=== PATIENT | male | born 1980 | race Two or more races ===

== ENCOUNTER 2016-10-13 00:16 | Emergency (ER) | payer BC ==
[2016-10-13 02:57] LABS: CHLORIDE,CL 101 mmol/L (98-107); SODIUM,NA 138 mmol/L (136-145)
[2016-10-13] MEDS ORDERED: Amoxicillin 875 MG Tab PO ONE (03:15)
[2016-10-13 03:44] VITALS: BP 138/80
--- NOTE | 2016-10-16 08:12 | ER ---
Date of Service: 10/13/2016 SUBJECTIVE: Tom presents to the emergency room with his . The patient states that he has been experiencing increased depression and increased alcohol intake. The patient had made several comments that he "did not want to live anymore on social media and also to his ." They have been in contact with Murieljeffery Michele today who told him to come in to the emergency room to be medically cleared for possible admission to [facility]. The patient states that he is not currently acutely suicidal or homicidal and does not have a plan to harm himself. He is requesting alcohol treatment, however. PAST MEDICAL HISTORY: Alcoholism. MEDICATIONS: None. ALLERGIES: To Humira. REVIEW OF SYSTEMS: General: Denies any fever or chills. HEENT: No sore throat, rhinorrhea, or congestion. Respiratory: No shortness of breath. Cardiac: Denies any substernal chest pain. Gastrointestinal: No nausea, vomiting, or diarrhea. No melena, hematochezia, or hematemesis. Neurologic: No fainting, blackouts, or lightheadedness. PHYSICAL EXAMINATION: General: This is a 35-year-old male patient, who is in no acute distress. Vital Signs: Blood pressure is 138/80, pulse rate is 91, temperature is 36.0, respiratory rate is 20, O2 saturations 96%. Skin: Warm, pink, and dry. HEENT: Head is normocephalic, atraumatic. Eyes, PERRLA. Extraocular movements are intact. Ears, TMs are clear. Mouth, oral mucosa is moist. Lungs: Clear to auscultation. Heart: Regular rate and rhythm. Abdomen: Soft, nontender. There is no hepatosplenomegaly or masses noted. Extremities: Without edema. Neurologic: He is alert and oriented. Answers all questions appropriately. His speech is fluent. His gait is within normal limits. LABORATORY DATA: WBCs are 14.7, hemoglobin is 15.9, platelets are 345. Coags; PT is 10.8, INR is 1.0. Sodium is 138, potassium is 3.7, chloride is 101, bicarb is 25, BUN is 17, creatinine is 0.8, GFR is greater than 60, glucose is 95, calcium is 8.8, corrected calcium is 8.32, total bilirubin is 0.8, AST is 25, ALT is 45, alkaline phosphatase is 65, total protein is 7.9, albumin is 4.6. TSH is 3.017. Urinalysis reveals specific gravity 1.030, negative for nitrites and leukocytes, ketones, and glucose. Urine toxicology was negative. Blood alcohol was negative. Acetaminophen level was negative. ASSESSMENT: 1. Depression. 2. Alcoholism. PLAN: The patient will be discharged. I did speak with [facility] Needs Assessment. The patient did as well. They did set up a screening later at [facility] in [place]. His laboratory data was given to him to bring to that facility. All questions were answered. MWK: 10/15/2016 05:59:18 MODL: 10/15/2016 11:22:59 /[id number]
== END 2016-10-13 03:58 | disposition home or self-care (01) ==
LOC: VM.ED 00:16
DX: F32.9 Major depressive disorder, single episode, unspecified (principal); F10.20 Alcohol dependence, uncomplicated
CPT/HCPCS: 36415; 80053; 80305; 81001; 84443; 85025; 85610; 87880; 99284; A9270; G0480

== ENCOUNTER 2021-01-11 07:55 | Emergency (ER) | payer BC, OTHER ==
[2021-01-11 08:06] VITALS: BP 160/94; PULSE 131
[2021-01-11] MEDS ORDERED: Sodium Chloride 0.9% 10 ML Syringe FLUSH PRN (08:19)
--- NOTE | 2021-01-11 08:22 | EDM.PDOC ---
ED HPI GENERAL MEDICAL PROBLEM - General Chief Complaint: General Stated Complaint: FEELING DIZZY AND CONFUSED Time Seen by Provider: 01/11/21 08:09 Source of Information: Reports: Patient - History of Present Illness INITIAL COMMENTS - FREE TEXT/NARRATIVE: Tom is a 40 y/o male who comes to the ER note feeling very well. He reports getting up to go to work as usual and then a couple hours after he arrived he started to feel very "weird", he describes it as almost "drunk". He started to get slightly nauseated, but did not vomit. Feels very unsteady. He admits to CBD use for psoriatic arthritis and he has used this for quite some time with good pain relief results. He has n ever had this happen before after using the CBD. He has not changed brands. - Related Data Allergies Allergy/AdvReac Type Severity Reaction Status Date / Time adalimumab [From Humira] Allergy Abdominal Verified 01/11/21 08:09 Pain Home Meds: Home Meds Methotrexate 2.5 mg PO Q7D 01/11/21 [History] Past Medical History Musculoskeletal History: Reports: Arthritis Psychiatric History: Reports: Addiction, Suicidal Ideation, Other (See Below) Other Psychiatric History: Addiction to ETOH Dermatologic History: Reports: Psoriasis Social & Family History - Tobacco Use Tobacco Use Status *Q: Former Tobacco User Used Tobacco, but Quit: Yes Month/Year Tobacco Last Used: 07/11 ED ROS GENERAL - Review of Systems Review Of Systems: See Below Constitutional: Reports: Malaise, Weakness HEENT: Reports: No Symptoms Respiratory: Reports: No Symptoms Cardiovascular: Reports: No Symptoms Endocrine: Reports: No Symptoms GI/Abdominal: Reports: Nausea : Reports: No Symptoms Musculoskeletal: Reports: No Symptoms Skin: Reports: No Symptoms Neurological: Reports: Weakness Psychiatric: Reports: No Symptoms Hematologic/Lymphatic: Reports: No Symptoms Immunologic: Reports: No Symptoms ED EXAM, GENERAL - Physical Exam Exam: See Below General Appearance: Alert, WD/WN, No Apparent Distress (Adult male) Eye Exam: Bilateral Eye: PERRL Ears: Normal External Exam, Normal Canal, Hearing Grossly Normal, Normal TMs Nose: Normal Inspection, Normal Mucosa Throat/Mouth: Normal Inspection, Normal Lips, Normal Voice Head: Atraumatic, Normocephalic Neck: Normal Inspection, Supple, Non-Tender Respiratory/Chest: No Respiratory Distress, Lungs Clear Cardiovascular: Normal Peripheral Pulses, Regular Rate, Rhythm, No Murmur GI/Abdominal: Normal Bowel Sounds, Soft, Non-Tender (Male) Exam: Deferred Rectal (Males) Exam: Deferred Back Exam: Normal Inspection, Full Range of Motion Extremities: Normal Inspection, Normal Range of Motion, Normal Capillary Refill Neurological: Alert, Oriented, CN II-XII Intact, Normal Cognition, No Motor/Sensory Deficits Psychiatric: Normal Affect, Normal Mood Skin Exam: Warm, Dry, Intact, Normal Color Lymphatic: No Adenopathy #1 Interpretation EKG Date: 01/11/21 Time: 08:33 Rhythm: NSR Rate (Beats/Min): 107 [place]: Normal P-Wave: Present QRS: Normal ST-T: Normal QT: Normal Comparison: NA - No Prior EKG EKG Interpretation Comments: Sinus Tachycardia Course - Vital Signs Text/Narrative:: [id number] The patient was seen by the PUBLIC ADDRESS TECHNICIAN. Labs and EKG ordered. Last Recorded V/S: Last Vital Signs Temp 37.0 C 01/11/21 08:00 Pulse 131 H 01/11/21 08:00 Resp 18 01/11/21 08:00 BP 160/94 H 01/11/21 08:00 Pulse Ox 97 01/11/21 08:00 - Orders/Labs/Meds Orders: Active Orders 24 hr Category Date Time Status EKG Documentation Completion [RC] STAT Care 01/11/21 08:19 Active Sodium Chloride 0.9% [Saline Flush] Med 01/11/21 08:19 Active 10 ml FLUSH ASDIRECTED PRN Saline Lock Insert [OM.PC] Stat Oth 01/11/21 08:19 Ordered Medication Orders Sodium Chloride (Sodium Chloride 0.9% 10 Ml Syringe) 10 ml FLUSH ASDIRECTED PRN PRN Reason: Keep Vein Open Labs: Laboratory Tests 01/11/21 01/11/21 01/11/21 Range/Units 08:25 08:25 08:29 WBC 6.8 (4.0-10.0) x10^3/uL RBC 4.56 (4.5-6.0) x10^6/uL Hgb 15.1 (14.0-18.0) g/dL Hct 41.6 (40.0-52.0) % MCV 91.2 (78.0-93.0) fL MCH 33.1 H (26.0-32.0) pg MCHC 36.3 H (32.0-36.0) g/dL RDW Coeff of Shashi 11.9 (10.0-15.0) % Plt Count 324 (130-400) x10^3/uL Neut % (Auto) 52.8 (50.0-80.0) % Lymph % (Auto) 34.2 (25.0-50.0) % Clayton % (Auto) 7.5 (2.0-11.0) % Eos % (Auto) 4.8 H (0.0-4.0) % Baso % (Auto) 0.7 (0.2-1.2) % Sodium (136-145) mmol/L Potassium (3.5-5.1) mmol/L Chloride (98-107) mmol/L Carbon Dioxide (21-32) mmol/L Anion Gap (5-15) mmol/L BUN (7-18) mg/dL Creatinine (0.70-1.30) mg/dL Est Cr Clr Drug Dosing Estimated GFR (MDRD) Glucose (70-99) mg/dL Calcium (8.5-10.1) mg/dL Corrected Calcium (8.5-10.1) mg/dL Magnesium (1.8-2.4) mg/dL Total Bilirubin (0.2-1.0) mg/dL AST (15-37) U/L ALT (16-63) U/L Alkaline Phosphatase (46-116) U/L Troponin I High Sens (<=76) ng/L C-Reactive Protein (<=0.9) mg/dL Total Protein (6.4-8.2) g/dL Albumin (3.4-5.0) g/dL Globulin Albumin/Globulin Ratio TSH, Ultra Sensitive (0.358-3.74) uIU/mL Urine Color Yellow (YELLOW) Urine Appearance Clear (CLEAR) Urine pH 5.5 (5.0-8.0) Ur Specific [place] >=1.030 Urine Protein Negative (NEGATIVE) mg/dL Urine Glucose (UA) Negative (NEGATIVE) mg/dL Urine Ketones Negative (NEGATIVE) mg/dL Urine Occult Blood Negative (NEGATIVE) Urine Nitrite Negative (NEGATIVE) Urine Bilirubin Small H (NEGATIVE) Urine Urobilinogen 0.2 (0.2) EU/dL Ur Leukocyte Esterase Negative (NEGATIVE) Urine Opiates Screen Negative (NEGATIVE) Ur Buprenorphine Scrn Negative (NEGATIVE) Ur Oxycodone Screen Negative (NEGATIVE) Urine Methadone Screen Negative (NEGATIVE) Ur Barbituates Screen Negative (NEGATIVE) Ur Phencyclidine Scrn Negative (NEGATIVE) Ur Amphetamines Screen Negative (NEGATIVE) U Methamphetamines Scrn Negative (NEGATIVE) Urine MDMA Screen Negative (NEGATIVE) U Benzodiazepines Scrn Negative (NEGATIVE) Urine Cocaine Screen Negative (NEGATIVE) U Marijuana (THC) Screen Positive H (NEGATIVE) Ethyl Alcohol (0-3) mg/dL 01/11/21 Range/Units 08:29 WBC (4.0-10.0) x10^3/uL RBC (4.5-6.0) x10^6/uL Hgb (14.0-18.0) g/dL Hct (40.0-52.0) % MCV (78.0-93.0) fL MCH (26.0-32.0) pg MCHC (32.0-36.0) g/dL RDW Coeff of Shashi (10.0-15.0) % Plt Count (130-400) x10^3/uL Neut % (Auto) (50.0-80.0) % Lymph % (Auto) (25.0-50.0) % Clayton % (Auto) (2.0-11.0) % Eos % (Auto) (0.0-4.0) % Baso % (Auto) (0.2-1.2) % Sodium 142 (136-145) mmol/L Potassium 3.8 (3.5-5.1) mmol/L Chloride 105 (98-107) mmol/L Carbon Dioxide 25 (21-32) mmol/L Anion Gap 15.8 H (5-15) mmol/L BUN 15 (7-18) mg/dL Creatinine 1.1 (0.70-1.30) mg/dL Est Cr Clr Drug Dosing TNP Estimated GFR (MDRD) > 60 Glucose 155 H (70-99) mg/dL Calcium 8.6 (8.5-10.1) mg/dL Corrected Calcium 8.4 L (8.5-10.1) mg/dL Magnesium 1.8 (1.8-2.4) mg/dL Total Bilirubin 0.8 (0.2-1.0) mg/dL AST 36 (15-37) U/L ALT 101 H (16-63) U/L Alkaline Phosphatase 56 (46-116) U/L Troponin I High Sens 6 (<=76) ng/L C-Reactive Protein < 0.2 (<=0.9) mg/dL Total Protein 7.4 (6.4-8.2) g/dL Albumin 4.2 (3.4-5.0) g/dL Globulin 3.2 Albumin/Globulin Ratio 1.31 TSH, Ultra Sensitive 2.702 (0.358-3.74) uIU/mL Urine Color (YELLOW) Urine Appearance (CLEAR) Urine pH (5.0-8.0) Ur Specific [place] Urine Protein (NEGATIVE) mg/dL Urine Glucose (UA) (NEGATIVE) mg/dL Urine Ketones (NEGATIVE) mg/dL Urine Occult Blood (NEGATIVE) Urine Nitrite (NEGATIVE) Urine Bilirubin (NEGATIVE) Urine Urobilinogen (0.2) EU/dL Ur Leukocyte Esterase (NEGATIVE) Urine Opiates Screen (NEGATIVE) Ur Buprenorphine Scrn (NEGATIVE) Ur Oxycodone Screen (NEGATIVE) Urine Methadone Screen (NEGATIVE) Ur Barbituates Screen (NEGATIVE) Ur Phencyclidine Scrn (NEGATIVE) Ur Amphetamines Screen (NEGATIVE) U Methamphetamines Scrn (NEGATIVE) Urine MDMA Screen (NEGATIVE) U Benzodiazepines Scrn (NEGATIVE) Urine Cocaine Screen (NEGATIVE) U Marijuana (THC) Screen (NEGATIVE) Ethyl Alcohol < 3 (0-3) mg/dL Meds: Medications Generic Name Dose Route Start Last Admin Trade Name Freq PRN Reason Stop Dose Admin Sodium Chloride 10 ml 01/11/21 08:19 Sodium Chloride 0.9% 10 Ml Syringe FLUSH ASDIRECTED PRN Keep Vein Open Departure - Departure Time of Disposition: 09:40 Disposition: Home, Self-Care 01 Condition: Good Clinical Impression: Adverse reaction to drug Qualifiers: Encounter type: initial encounter Qualified Code(s): T50.905A - Adverse effect of unspecified drugs, medicaments and biological substances, initial encounter - Discharge Information Instructions: Psoriatic Arthritis Forms: ED Department Discharge, ED Return to Work/School Form Additional Instructions: -Discuss further CBD use with your Diagnostics Sales Developer and obtain documentation that you have a medical condition with use is beneficial for you. -Stay well hydrated -Rest as needed -Return to the ER as needed for any further concerns Sepsis Event Note (ED) - Evaluation Sepsis Screening Result: No Definite Risk - Focused Exam Vital Signs: Vital Signs Temp Pulse Resp BP Pulse Ox 01/11/21 08:00 37.0 C 131 H 18 160/94 H 97 - My Orders Last 24 Hours: My Active Orders 01/11/21 08:19 EKG Documentation Completion [RC] STAT Sodium Chloride 0.9% [Saline Flush] 10 ml FLUSH ASDIRECTED PRN Saline Lock Insert [OM.PC] Stat - Assessment/Plan Last 24 Hours: My Active Orders 01/11/21 08:19 EKG Documentation Completion [RC] STAT Sodium Chloride 0.9% [Saline Flush] 10 ml FLUSH ASDIRECTED PRN Saline Lock Insert [OM.PC] Stat Assessment:: 1)CBD Use, Adverse Reaction 2)Hx Psoriatic Arthritis Plan: -As above
[2021-01-11 08:43] LABS: BUPRENORPHINE,URINE NEGATIVE (NEGATIVE); MARIJUANA,URINE POSITIVE (NEGATIVE); METHYLENEDIOXYMETHAMP,UR NEGATIVE (NEGATIVE); PHENCYCLIDINE,URINE NEGATIVE (NEGATIVE)
[2021-01-11 09:06] LABS: CHLORIDE,CL 105 mmol/L (98-107); SODIUM,NA 142 mmol/L (136-145)
[2021-01-11 09:08] LABS: ANION GAP 15.8 mmol/L (5-15)
== END 2021-01-11 09:50 | disposition home or self-care (01) ==
LOC: VM.ED 07:55
DX: R11.0 Nausea (principal); T40.7X5A Adverse effect of cannabis (derivatives), initial encounter; Z88.8 Allergy status to other drugs, medicaments and biological substances; Z87.891 Personal history of nicotine dependence
CPT/HCPCS: 36415; 80053; 80305-QW; 80307; 81003; 83735; 84443; 84484; 85025; 86140; 93005; 93010; 99284; 99284-25